=== PATIENT | male | born 1965 | race Caucasian/White ===

== ENCOUNTER 2019-11-29 00:16 | Emergency (ER) | payer MEDICAID ==
[~2019-11-29] VITALS: Ht 177.8 cm; Wt 81.8 kg
[~2019-11-29 00:16] MED LIST: CYCL-1 PO; DIPH25TA62 PO; DOXY-1 PO; HYDR-4353 PO; NO HOME MEDS
[2019-11-29 01:05] LABS: CLARITY,URINE CLEAR (Clear); COLOR,URINE YELLOW (Yellow); GLUCOSE, URINE NEGATIVE (Neg); KETONES,URINE NEGATIVE (Neg); LEUKOCYTE ESTERASE ,URINE NEGATIVE (Neg); NITRITES, URINE NEGATIVE (Neg); OCCULT BLOOD,URINE TRACE-LYSED (Neg); PROTEIN,URINE TRACE mg/dl (Neg); UROBILINOGEN,URINE 0.2 E.U/dL (0.2-1.0)
[2019-11-29 01:07] LABS: BASOPHILS # (AUTO) 0.1 X10'3 (0-0.2); BASOPHILS % (AUTO) 0.5 % (0-1); EOSINOPHILS # (AUTO) 0.5 X10'3 (0-0.9); EOSINOPHILS % (AUTO) 5.1 % (0-6); HEMATOCRIT 43.9 % (42.0-52.0); HEMOGLOBIN 15.1 g/dl (14.0-17.9); LYMPHOCYTES # (AUTO) 1.5 X10'3 (1.1-4.8); LYMPHOCYTES % (AUTO) 14.2 % (21-51); MEAN CORPUSCULAR HEMOGLOBIN 29.1 PG (27.0-31.0); MEAN CORPUSCULAR HGB CONC 34.3 g/dL (33.0-36.5); MEAN CORPUSCULAR VOLUME 84.7 FL (78-98); MEAN PLATELET VOLUME 8.4 FL (7.4-10.4); MONOCYTES # (AUTO) 0.9 X10'3 (0-0.9); MONOCYTES % (AUTO) 8.5 % (2-12); NEUTROPHILS # (AUTO) 7.7 X10'3 (1.8-7.7); NEUTROPHILS % (AUTO) 71.7 % (42-75); PLATELET COUNT 251 X10'3 (140-440); RED BLOOD COUNT 5.19 X10'6 (4.70-6.10); RED CELL DISTRIBUTION WIDTH 14.7 % (11.5-14.5); WHITE BLOOD COUNT 10.7 X10'3 (4.5-11.0)
[2019-11-29 01:10] LABS: UA COLLECTION TYPE CLN CATCH MIDSTREAM
[2019-11-29 01:12] LABS: BACTERIA,URINE FEW /HPF (Neg); RBC,URINE 0-2 /HPF (0-2); WBC,URINE 0-4 /HPF (0-4)
[2019-11-29 01:13] LABS: ALANINE AMINOTRANSFERASE 21 U/L (12-78); ALBUMIN 3.6 G/DL (3.4-5.0); ALBUMIN/GLOBULIN RATIO 0.8 (1.1-1.5); ALKALINE PHOSPHATASE 99 IU/L (46-116); ANION GAP 13 (8-16); ASPARTATE AMINO TRANSFERASE 14 U/L (10-37); BILIRUBIN,TOTAL 0.4 MG/DL (0.1-1.0); BLOOD UREA NITROGEN 33 MG/DL (7-18); BUN/CREATININE RATIO 24.1 (5.4-32.0); CALCIUM 8.9 MG/DL (8.5-10.1); CHLORIDE 107 MMOL/L (99-107); CREATININE 1.37 MG/DL (0.60-1.10); GLUCOSE 138 MG/DL (70-104); LIPASE 160 U/L (73-393); POTASSIUM 3.6 MMOL/L (3.5-5.1); SODIUM 140 MMOL/L (135-145); TOTAL CARBON DIOXIDE 20.1 MMOL/L (24-32); TOTAL PROTEIN 8.3 G/DL (6.4-8.2); eGFR 54 ML/MIN
[2019-11-29] MEDS ORDERED: SULF1TAB49 PO (01:13)
[2019-11-29] MEDS ORDERED: sulfamethoxazole/trimethoprim DS (800/160mg) tablet PO ONE (01:15)
[2019-11-29 01:17] LABS: MUCUS STRANDS MODERATE /LPF (Neg); SQUAMOUS EPITHELIAL CELL,UR FEW /LPF (FEW)
[2019-11-29 01:18] LABS: CELLULAR CAST 0-4 /LPF (NEGATIVE)
[2019-11-29] MEDS ORDERED: normal saline 1000ML IV soln IVB ONE (01:25)
[2019-11-29 02:11] VITALS: BP 131/74
== END 2019-11-29 02:12 | disposition home or self-care (01) ==
LOC: ER 00:17
DX: E86.0 Dehydration (principal); R19.7 Diarrhea, unspecified; L98.9 Disorder of the skin and subcutaneous tissue, unspecified; F12.90 Cannabis use, unspecified, uncomplicated; F15.90 Other stimulant use, unspecified, uncomplicated; F17.200 Nicotine dependence, unspecified, uncomplicated; Z59.0 Homelessness; Z56.0 Unemployment, unspecified; Z98.890 Other specified postprocedural states; Z91.013 Allergy to seafood; Z79.899 Other long term (current) drug therapy
CPT/HCPCS: 36415; 80053; 81001; 83690; 85025; 87088; 96360; 99283; J7030

== ENCOUNTER 2024-09-02 13:15 | Emergency (ER) | payer MEDICAID ==
[~2024-09-02] VITALS: Ht 177.8 cm; Wt 129.6 kg
[2024-09-02] MEDS ORDERED: CLIN-97 PO (13:49)
[2024-09-02] MEDS: CefTRIAXone 1000mg IM Kit (w/lidocaine diluent) IM ONE (14:14)
[2024-09-02 14:19] VITALS: BP 187/98; PULSE 85; RESP 16; TEMP 97.9; O2SAT 99
== END 2024-09-02 14:20 | disposition home or self-care (01) ==
LOC: ER 13:16
DX: K04.7 Periapical abscess without sinus (principal); F12.90 Cannabis use, unspecified, uncomplicated; F15.90 Other stimulant use, unspecified, uncomplicated; Z91.013 Allergy to seafood; Z79.899 Other long term (current) drug therapy; Z98.890 Other specified postprocedural states; Z59.00 Homelessness unspecified; Z56.0 Unemployment, unspecified
CPT/HCPCS: 96372; 99283; J0696

== ENCOUNTER 2024-09-22 21:17 | Emergency (ER) | payer MEDICAID ==
[~2024-09-22] VITALS: Ht 177.8 cm; Wt 129.6 kg
[~2024-09-22 21:17] MED LIST changes: +CLIN-97 PO
[2024-09-22] MEDS ORDERED: FLO0.4C PO (22:08)
[2024-09-22] MEDS ORDERED: METF-436 PO (22:08)
[2024-09-22] MEDS ORDERED: AMLO10TA13 PO (22:08)
[2024-09-22] MEDS ORDERED: AMOX500C2 PO (22:08)
[2024-09-22] MEDS: amLODIPine 5mg tablet PO ONE (22:18)
[2024-09-22 22:21] VITALS: BP 160/109; PULSE 68; RESP 17; TEMP 97.8; O2SAT 98
== END 2024-09-22 22:22 | disposition home or self-care (01) ==
LOC: ER 21:18
DX: I10 Essential (primary) hypertension (principal); E11.9 Type 2 diabetes mellitus without complications; F12.90 Cannabis use, unspecified, uncomplicated; F15.90 Other stimulant use, unspecified, uncomplicated; F41.9 Anxiety disorder, unspecified; Z91.013 Allergy to seafood; Z79.2 Long term (current) use of antibiotics; Z79.899 Other long term (current) drug therapy; Z91.148 Patient's other noncompliance with medication regimen for other reason
CPT/HCPCS: 82948; 99283

== ENCOUNTER 2025-02-22 14:17 | Emergency (ER) | payer MEDICAID ==
[~2025-02-22] VITALS: Ht 177.8 cm; Wt 95.8 kg
[~2025-02-22 14:17] MED LIST changes: +AMLO10TA13 PO; +METF-436 PO
--- NOTE | 2025-02-22 18:00 | Physician Documentation ---
History of Present Illness ~ Chief Complaint: Wound Stated Complaint: LEFT ANKLE PAIN Time Seen by MD: 17:54 Primary Medical Doctor: none HPI The patient is Seen today with complaints of pain and redness and infection and itching rash that developed into infection of his left lower extremity. Patient states he has had issues with edema and swelling of that leg as well as cellul itis as well as itching multiple times over the last few months and has been on multiple rounds of antibiotics for this same case. Patient denies any fevers or chills. He has no other concern or complaint at this time. Tetanus within 5 years?: No (Unk) Medication Reconciliation Allergies: Coded Allergies: shellfish derived (Verified Allergy, Unknown, 09/02/24) Scheduled Amlodipine Besylate (Amlodipine Besylate), 1 TAB PO DAILY Clindamycin HCL* (Clindamycin HCL*), 1 CAP PO QID Diphenhydramine Hcl (Benadryl Allergy), 25 MG PO Q6H Doxycycline Hyclate (Doxycycline Hyclate), 1 CAP PO BID Hydrocodone Bit/Acetaminophen ([place] 10-325 Tablet), 1 TAB PO Q6H Metformin Hcl (Metformin Hcl), 1 TAB PO Q12H Scheduled PRN Cyclobenzaprine* (Cyclobenzaprine*), 1 TABLET PO Q8H PRN for muscle spasms Miscellaneous Medications Home Med List (No Home Medications), (Reported) Past Medical History Past Medical History: Hernia, *MUSCULOSKELETAL* Past Surgical History: abdominal surgery Other Past Surgical History: Abdominal hernia repair Alcohol Use: None Drug Use: marijuana, methamphetamine Lives with: S/O Lives In: Homeless Occupation: unemployed Review of Systems Constitutional: Denies: chills, fever, weakness Eyes: Denies: pain, blurred vision ENT: Denies: ear pain, nose pain, throat pain, mouth pain Respiratory: Denies: cough, shortness of breath Cardiovascular: Denies: chest pain, palpitations Gastrointestinal: Denies: abdominal pain, nausea, vomiting Genitourinary: Denies: burning, dysuria Male Genitalia: Denies: penile discharge, testicular pain Neurological: Denies: headache, dizziness Musculoskeletal: Denies: pain, swelling Integumentary: Denies: rash, lesions Allergic/Immunologic: Denies: hives, itching Hematologic/Lymphatic: Denies: no symptoms reported Psychiatric: Denies: depression, anxiety Physical Exam Vital Signs: Temperature: 98.0, Source: Temporal, Heart Rate: 107, Respiratory Rate: 15, BP: 182/112, Pulse Oximetry: 98, Weight: 95.850 Physical Exam General: Awake and Alert, no acute distress. HEENT: Conjunctiva pink, Sclera clear, Mucus Membranes moist. Neck: Supple without masses and tenderness. Resp: Unlabored. Lungs clear to auscultation bilaterally. Heart: Regular Rate and rhythm, normal S1 and S2 without murmur, rub or gallop. Extremities: No cyanosis,clubbing, patient does have edema of bilateral lower extremities. Skin: Patient has edema significantly of left lower extremity with cellulitis and multiple open sores and scabs and excoriations over patient's left lower extremity. Patient is neurovascularly intact distally. Motor function intact distally. General Appearance: alert, WD/WN, no apparent distress EENT: normal ENT inspection, moist mucous membranes Neck: non-tender, full range of motion, supple Cardiovascular: normal peripheral pulses, regular rate, rhythm, no edema Respiratory: lungs clear, normal breath sounds, no respiratory distress Chest: no accessory muscle use, chest non-tender Gastrointestinal: normal palpation, non-tender, bowels sounds present Back: normal inspection, no CVA tenderness Extremities: normal inspection, normal capillary refill Wound Site : Appearance: healing well Erythema: none Skin: warm/dry, normal color Neurologic: oriented x4, deposit clerk II-XII nml as tested Lymphatics: normal inspection; No: tenderness Psychiatric: normal mood/affect; No: agitation Progress Results/Orders Results/Orders Vital Signs 02/22/25 14:20 Temp 98.0 Pulse 107 Resp 15 B/P (MAP) 182/112 Pulse Ox 98 Medical Decision Making Findings The patient is Seen today with complaints of pain and redness and infection and itching rash that developed into infection of his left lower extremity. Patient states he has had issues with edema and swelling of that leg as well as cellulitis as well as itching multiple times over the last few months and has been on multiple rounds of antibiotics for this same case. Patient denies any fevers or chills. He has no other concern or complaint at this time. Patient was given dose of Lasix 60 mg in the ED today. Along with clindamycin 300 mg and [place] 10/325 mg in the ED today. Prescriptions of the same were sent to patient's pharmacy to be taken as directed. Patient will return to ED with any worsening, concerning or changing symptoms. I strongly advised patient follow up with primary care in 2-5 days for re-evaluation. Shared decision- making utilized with the patient today. Departure Disposition: HOME / SELF CARE / HOMELESS Impression: Primary Impression: Wound Additional Impressions: Wound cellulitis Edema Qualified Codes: R60.9 - Edema, unspecified Condition: Improved Discharge Instructions: Cellulitis, Adult, [id number] Referrals: NO PRIMARY CARE PROVIDER (PCP) Prescriptions Prednisone (Prednisone) 10 Mg Tablet 0 PO DAILY, #42 TAB Take 4 tabs daily x4 days, then 3 daily x4 days 2 daily x4 days 1 daily x4 days 1/2 daily x4 days then STOP Prov: GAGE CORDERO 02/22/25 Potassium Chloride (Klor-Con 8) 8 Meq Tablet.er 1 TAB PO DAILY for 30 Days, #30 TAB 0 Refills Prov: GAGE CORDERO 02/22/25 Furosemide (LASIX) 40 Mg Tablet 1 TAB PO DAILY for 30 Days, #30 TAB 0 Refills Prov: GAGE CORDERO 02/22/25 Clindamycin HCl (Clindamycin HCl) 300 Mg Capsule 1 CAP PO Q8H for 10 Days, #30 CAP Prov: GAGE CORDERO 02/22/25 Hydrocodone Bit/Acetaminophen (Hydrocodone-Apap 10-325 Tablet) 10mg/325mg Tablet 1 TAB PO TID PRN PRN for pain for 5 Days, #15 TAB Prov: GAGE CORDERO 02/22/25 Signature Scribe Signature: No scribe Attestation: No scribe GAGE CORDERO February 22, 2025 18:00
[2025-02-22] MEDS ORDERED: POTA8TAB69 PO (18:01)
[2025-02-22] MEDS ORDERED: PRED10TA23 PO (18:01)
[2025-02-22] MEDS ORDERED: FURO-149 PO (18:01)
[2025-02-22] MEDS ORDERED: HYDR-3973 PO (18:01)
[2025-02-22] MEDS ORDERED: CLIN300C71 PO (18:01)
[2025-02-22] MEDS: furosemide 20MG tablet PO STA (18:17)
[2025-02-22] MEDS: clindamycin 150mg capsule PO STA (18:18)
[2025-02-22] MEDS: HYDROcodone/acetaminophen 10/325mg tab PO STA (18:18)
[2025-02-22 18:21] VITALS: BP 162/91; PULSE 79; RESP 16; TEMP 98; O2SAT 97
== END 2025-02-22 18:23 | disposition home or self-care (01) ==
LOC: ER 14:18
DX: L03.116 Cellulitis of left lower limb (principal); R60.0 Localized edema; F12.90 Cannabis use, unspecified, uncomplicated; F15.90 Other stimulant use, unspecified, uncomplicated; Z56.0 Unemployment, unspecified; Z59.00 Homelessness unspecified; Z91.013 Allergy to seafood; Z79.899 Other long term (current) drug therapy
CPT/HCPCS: 99284

== ENCOUNTER 2025-03-25 06:25 | Emergency (ER) | payer MEDICAID ==
[~2025-03-25] VITALS: Ht 177.8 cm; Wt 98.5 kg
[~2025-03-25 06:25] MED LIST changes: +FURO-149 PO; +POTA8TAB69 PO; +PRED10TA23 PO
[2025-03-25 07:03] VITALS: BP 152/80; PULSE 116; TEMP 99.6; O2SAT 97
[2025-03-25 07:04] VITALS: RESP 14
[2025-03-25] MEDS ORDERED: TAMSULOSIN (07:08)
[2025-03-25] MEDS: normal saline 1000ml 1,000 ML IV ONE (07:20)
--- NOTE | 2025-03-25 07:23 | Physician Documentation ---
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 He has been on numerous rounds of antibiotics which improved the wounds temporarily. His last round of antibiotics ended about a week ago and that is when the wounds began to recur. He is a type 2 diabetic who reports that he is not currently taking any medication for his diabetes. Does not have a PCP. Medication Reconciliation Allergies: Coded Allergies: shellfish derived (Verified Allergy, Unknown, 09/02/24) Scheduled Amlodipine Besylate (Amlodipine Besylate), 1 TAB PO DAILY Clindamycin HCL* (Clindamycin HCL*), 1 CAP PO QID Diphenhydramine Hcl (Benadryl Allergy), 25 MG PO Q6H Doxycycline Hyclate (Doxycycline Hyclate), 1 CAP PO BID Furosemide (Lasix), 1 TAB PO DAILY Hydrocodone Bit/Acetaminophen (Cadet 10-325 Tablet), 1 TAB PO Q6H Metformin Hcl (Metformin Hcl), 1 TAB PO Q12H Potassium Chloride (Klor-Con 8), 1 TAB PO DAILY Scheduled PRN Cyclobenzaprine* (Cyclobenzaprine*), 1 TABLET PO Q8H PRN for muscle spasms Miscellaneous Medications Home Med List (No Home Medications), (Reported) [Tamsulosin], (Reported) Discontinued Medications Prednisone (Prednisone), 0 PO DAILY Discontinued Reason: Auto Discontinued Past Medical History Past Medical History: Hernia, *MUSCULOSKELETAL* Past Surgical History: abdominal surgery Other Past Surgical History: Abdominal hernia repair Smoking: Cigarettes Alcohol Use: None Drug Use: marijuana, methamphetamine Lives with: S/O Lives In: Homeless Occupation: unemployed Review of Systems ROS Constitutional: Denies chills, fatigue, fever, weight gain or weight loss. HEENT: Denies hearing loss, sinus pressure or visual changes. Respiratory: Denies cough, shortness of breath or wheezing. Cardiovascular: Denies chest pain, pain while walking (claudication), edema or palpitations. Gastrointestinal: Denies abdominal pain, blood in stool, constipation, diarrhea, heartburn, loss of appetite, nausea or vomiting. Genitourinary: Denies painful urination (dysuria), excessive amount of urine (polyuria) or urinary frequency. Metabolic/Endocrine: Denies cold intolerance, heat intolerance, excessive thirst (polydipsia) or excessive hunger (polyphagia). Neurological: Denies dizziness, extremity numbness, extremity weakness, headaches, seizures or tremors. Psychiatric: Denies anxiety or depression. Integumentary: Denies breast discharge, breast lump, hives, mole change(s), rash or skin lesion. Musculoskeletal: Wounds to the left lower extremity Hematologic: Denies easily bleeding, easily bruises, lymphedema or issues with blood clots. Immunologic: Denies food allergies or seasonal allergies. Physical Exam Physical Exam Vital Signs: Temperature: 99.6, Source: Oral, Heart Rate: 116, Respiratory Rate: 14, BP: 152/80, Pulse Oximetry: 97, Weight: 98.550 Oxygen Flow Rate: 0 Physical Exam Physical Exam Vitals and nursing note reviewed. Constitutional: General: Patient is awake, alert, oriented x 4 in no acute distress and well appearing. Speech is clear and lucid. Tachycardia around 120 Appearance: Normal appearance. Patient is not ill-appearing, toxic-appearing or diaphoretic. HENT: Head: Normocephalic and atraumatic. Mouth/Throat: Mouth: Mucous membranes are moist. Pharynx: Oropharynx is clear. Eyes: General: No scleral icterus. Extraocular Movements: Extraocular movements intact. Pupils: Pupils are equal, round, and reactive to light. Cardiovascular: Rate and Rhythm: Normal rate and regular rhythm. Heart sounds: No murmur heard. Pulmonary: Effort: No respiratory distress. Breath sounds: No wheezing, rhonchi or rales. Abdominal: General: There is no distension. Palpations: There is no fluid wave, hepatomegaly or mass. Tenderness: There is no abdominal tenderness. There is no guarding. Musculoskeletal: General: No swelling or deformity. Skin: Coloration: Skin is not jaundiced. Findings: The left lower leg above the ankle shows crusty and blistering circumferential wounds. They are weeping. The leg is not grossly swollen and there is good neurovascular function in the foot. Neurological: Mental Status: Patient is alert. Progress Results/Orders Results/Orders Completed Orders - DEZ MONCADA MD Cbc/Diff (03/25/25 07:18) Bmp Er (03/25/25 07:18) LA (03/25/25 07:18) C-Reactive Protein (03/25/25 07:18) Hydrocodone/Apap 10/325 (Cadet 10/325mg (03/25/25 07:20) Normal Saline 1000ml (Sodium Chloride 10 (03/25/25 07:20) Medications Received in ER Medications (Trade) Dose Ordered Sig/Eduardo Route PRN Reason Start Time Stop Time Status Last Admin Dose Admin (Cadet 10/325mg tab) 1 tab ONCE ONCE PO 03/25/25 07:20 03/25/25 07:21 DC 03/25/25 07:59 1 TAB Vital Signs 03/25/25 03/25/25 03/25/25 06:26 07:03 07:04 Temp 98.3 99.6 Pulse 126 116 Resp 18 14 14 B/P (MAP) 179/101 152/80 (104) Pulse Ox 97 97 O2 Flow Rate 0 Laboratory Tests Test 03/25/25 06:54 03/25/25 06:55 Glucometer 181 H White Blood Count 12.0 H Red Blood Count 4.82 Hemoglobin 13.8 L Hematocrit 41.6 L Mean Corpuscular Volume 86.4 Mean Corpuscular Hemoglobin 28.7 Mean Corpuscular Hemoglobin Concent 33.2 Red Cell Distribution Width 16.0 H Platelet Count 186 Mean Platelet Volume 8.8 Neutrophils (%) (Auto) 80.2 H Lymphocytes (%) (Auto) 8.6 L Monocytes (%) (Auto) 9.1 Eosinophils (%) (Auto) 1.4 Basophils (%) (Auto) 0.7 Neutrophils # (Auto) 9.7 H Lymphocytes # (Auto) 1.0 L Monocytes # (Auto) 1.1 H Eosinophils # (Auto) 0.2 Basophils # (Auto) 0.1 CBC Comment Sodium Level 132 L Potassium Level 4.0 Chloride Level 97 L Carbon Dioxide Level 27.1 Anion Gap 8 Blood Urea Nitrogen 21 H Creatinine 1.68 H Estimated GFR/1.73 m2 42 BUN/Creatinine Ratio 12.5 Glucose Level 153 H Lactic Acid Level 1.5 Calcium Level 8.0 L C-Reactive Protein 6.32 H Albumin 2.9 L Chemistry Comments Medical Decision Making Findings Unfortunately, the patient eloped from the department. Departure Disposition: LEFT AWOL/ELOPED Impression: Primary Impression: Eloped from emergency department Referrals: NO PRIMARY CARE PROVIDER (PCP) Signature Scribe Signature: . Attestation: . DEZ MONCADA MD Mar 25, 2025 07:23
[2025-03-25 07:34] LABS: BASOPHILS # (AUTO) 0.1 X10'3 (0-0.2); BASOPHILS % (AUTO) 0.7 % (0-1); EOSINOPHILS # (AUTO) 0.2 X10'3 (0-0.9); EOSINOPHILS % (AUTO) 1.4 % (0-6); HEMATOCRIT 41.6 % (42.0-52.0); HEMOGLOBIN 13.8 g/dl (14.0-17.9); LYMPHOCYTES % (AUTO) 8.6 % (21-51); MEAN CORPUSCULAR HEMOGLOBIN 28.7 PG (27.0-31.0); MEAN CORPUSCULAR HGB CONC 33.2 g/dL (33.0-36.5); MEAN CORPUSCULAR VOLUME 86.4 FL (78-98); MEAN PLATELET VOLUME 8.8 FL (7.4-10.4); MONOCYTES # (AUTO) 1.1 X10'3 (0-0.9); MONOCYTES % (AUTO) 9.1 % (2-12); NEUTROPHILS # (AUTO) 9.7 X10'3 (1.8-7.7); NEUTROPHILS % (AUTO) 80.2 % (42-75); PLATELET COUNT 186 X10'3 (140-440); RED BLOOD COUNT 4.82 X10'6 (4.70-6.10)
[2025-03-25 07:46] LABS: ALBUMIN 2.9 G/DL (3.4-5.0); ANION GAP 8 (8-16); BLOOD UREA NITROGEN 21 MG/DL (7-18); BUN/CREATININE RATIO 12.5 (10.0-20.0); C-REACTIVE PROTEIN 6.32 MG/DL (0.0-0.5); CHLORIDE 97 MMOL/L (99-107); CREATININE 1.68 MG/DL (0.60-1.10); GLUCOSE 153 MG/DL (70-104); SODIUM 132 MMOL/L (135-145); TOTAL CARBON DIOXIDE 27.1 MMOL/L (24-32); eCRCL 49 ML/MIN; eGFR 42 ML/MIN
[2025-03-25] MEDS: HYDROcodone/acetaminophen 10/325mg tab PO ONE (07:59)
== END 2025-03-25 08:38 | disposition left against medical advice (07) ==
LOC: ER 06:26
DX: S80.922A Unspecified superficial injury of left lower leg, initial encounter (principal); E11.9 Type 2 diabetes mellitus without complications; F17.210 Nicotine dependence, cigarettes, uncomplicated; F12.90 Cannabis use, unspecified, uncomplicated; F15.90 Other stimulant use, unspecified, uncomplicated; Z59.00 Homelessness unspecified; Z91.013 Allergy to seafood; Z79.899 Other long term (current) drug therapy; Z56.0 Unemployment, unspecified; X58.XXXA Exposure to other specified factors, initial encounter; Y93.89 Activity, other specified; Y92.89 Other specified places as the place of occurrence of the external cause; Y99.8 Other external cause status
CPT/HCPCS: 36415; 80048; 82948; 83605; 85025; 86140; 99283; J7030